=== PATIENT | female | born 1985 | race Two or more races ===

== ENCOUNTER 2018-10-07 06:17 | Emergency (ER) | payer SELFPAY ==
[~2018-10-07] VITALS: Ht 139.7 cm; Wt 71.9 kg
[2018-10-07] MEDS ORDERED: HYDROCODONE/APAP 5/325MG 1 EACH TABLET ONE (06:50)
--- NOTE | 2018-10-07 06:50 | NUR ---
PT BIBSELF COMPLAINING OF TAILBONE PAIN S/P GLF X 1 WEEK AGO. PT ABLE TO AMBULATE WITH STEADY GAIT. NO ACUTE DISTRESS NOTED AT THIS TIME
[2018-10-07] MEDS ORDERED: HYDROCODONE/APAP 5/325MG 1 EACH TABLET PO ONE (07:00)
--- NOTE | 2018-10-07 07:00 | NUR ---
RADIOLOGY AT BEDSIDE FOR XRAY
--- NOTE | 2018-10-07 07:46 | NUR ---
PT NOW COMPLAINING OF DYSURIA. AWARE
--- NOTE | 2018-10-07 07:46 | NUR ---
URINE COLLECTED AND SENT TO LAB
[2018-10-07 07:56] LABS: APPEARANCE,URINE CLEAR (CLEAR); BILIRUBIN,URINE NEGATIVE (NEGATIVE); BLOOD, URINE NEGATIVE Ery/uL (NEGATIVE); COLOR,URINE YELLOW (YELLOW); KETONES,URINE NEGATIVE (NEGATIVE); LEUKOCYTE ESTERASE ,URINE TRACE (NEGATIVE); NITRITE, URINE NEGATIVE (NEGATIVE); PH,URINE 5.5 (5.0-8.0); PROTEIN,URINE NEGATIVE (NEGATIVE); UGLUCOSE NEGATIVE (NEGATIVE); UROBILINOGEN,URINE 0.2 EU/dL (0.2)
[2018-10-07 08:03] LABS: BASOPHILS % (AUTO) 0.4 % (0.0-2.0); HEMATOCRIT 40 % (33-45); HEMOGLOBIN 13.5 g/dL (11.5-14.8); LYMPHOCYTES # (AUTO) 2.5 /CMM (0.8-4.8); LYMPHOCYTES % (AUTO) 30.1 % (20.0-44.0); MEAN CORPUSCULAR HGB CONC 34 g/dl (31.0-36.0); MEAN CORPUSCULAR VOLUME 91 fL (82-100); MONOCYTES # (AUTO) 0.5 /CMM (0.1-1.30); MONOCYTES % (AUTO) 6.3 % (2.0-12.0); NEUTROPHILS # (AUTO) 5.3 /CMM (1.8-8.9); NEUTROPHILS % (AUTO) 62.2 % (43.0-81.0); PLATELET COUNT (AUTO) 246 /CMM (150-450); RED BLOOD CELL COUNT(AUTO) 4.38 MIL/uL (4.0-5.2); WHITE BLOOD COUNT (AUTO) 8.5 K/uL (4.3-11.0)
[2018-10-07 08:06] LABS: RBC,URINE 0-2 /HPF (0-2)
[2018-10-07 08:07] LABS: BACTERIA,URINE Few /HPF (None Seen)
[2018-10-07 08:15] LABS: CALCIUM, SERUM 8.4 mg/dL (8.5-10.1); CREATININE 0.5 mg/dL (0.6-1.3); POTASSIUM 3.9 mmol/L (3.5-5.1)
[2018-10-07 08:21] LABS: ALBUMIN 3.5 g/dL (3.4-5.0); BILIRUBIN,TOTAL 0.5 mg/dL (0.2-1.0); TOTAL PROTEIN, SERUM 7.5 g/dL (6.4-8.2)
[2018-10-07 08:46] VITALS: BP 132/78
== END 2018-10-07 08:47 | disposition home or self-care (01) ==
LOC: ER 06:29
DX: S30.0XXA Contusion of lower back and pelvis, initial encounter (principal); Z98.890 Other specified postprocedural states; W01.0XXA Fall on same level from slipping, tripping and stumbling without subsequent striking against object, initial encounter; Y93.89 Activity, other specified; Y92.89 Other specified places as the place of occurrence of the external cause; Y99.8 Other external cause status
CPT/HCPCS: 36415; 72220; 80053; 81001; 84703; 85025; 99284; A4606; 81000-TC

== ENCOUNTER 2020-10-06 06:41 | Emergency (ER) | payer MEDICAID ==
[~2020-10-06] VITALS: Ht 152.4 cm; Wt 66.2 kg
--- NOTE | 2020-10-06 06:46 | NUR ---
pt bibself c/o painful and burning urination x2 days. pt aaox4 breathing evenly and unlabored.Pt states that she has pain in her waist and lower abd. Pt denies blood in urine, pain in back. evaluated pt at bedside. Pt gave urine sample and it was sent to lab. Pt attached to monitor and pox. Pt given blankets and call light within reach.
--- NOTE | 2020-10-06 06:57 | NUR ---
URINE COLLECTED AND SENT TO LAB
--- NOTE | 2020-10-06 07:14 | NUR ---
endorsed care to LILIANA Hughes for susan
[2020-10-06 07:54] LABS: COLOR,URINE YELLOW (YELLOW)
[2020-10-06 07:55] LABS: BILIRUBIN,URINE NEGATIVE (NEGATIVE); PROTEIN,URINE NEGATIVE (NEGATIVE); UGLUCOSE NEGATIVE (NEGATIVE)
[2020-10-06 07:56] LABS: LEUKOCYTE ESTERASE ,URINE SMALL (NEGATIVE); NITRITE, URINE NEGATIVE (NEGATIVE); UROBILINOGEN,URINE 0.2 EU/dL (0.2)
[2020-10-06 08:28] LABS: BACTERIA,URINE Few /HPF (None Seen); RBC,URINE 0-2 /HPF (0-2); SQUAMOUS EPITHELIAL CELL,UR Few /HPF (None Seen)
[2020-10-06 08:31] LABS: URIC ACID CRYSTALS,URINE Moderate /HPF (None Seen)
[2020-10-06] MEDS ORDERED: CEPH500T PO (08:36)
[2020-10-06 08:43] VITALS: BP 118/77
--- NOTE | 2020-10-06 08:43 | NUR ---
Patient discharged to home in stable condition. Written and verbal after care instructions given. Patient verbalizes understanding of instruction.
== END 2020-10-06 08:43 | disposition home or self-care (01) ==
LOC: ER 06:45
DX: N39.0 Urinary tract infection, site not specified (principal); Z98.890 Other specified postprocedural states
CPT/HCPCS: 81001; 84703-TC; 87086-TC

== ENCOUNTER 2022-03-05 00:06 | Emergency (ER) | payer MEDICAID ==
[~2022-03-05] VITALS: Ht 152.4 cm; Wt 68.0 kg
[~2022-03-05 00:06] MED LIST: CEPH500T PO
--- NOTE | 2022-03-05 00:35 | NUR ---
TO ER BED 10. BIBS C/O THROAT PAIN SINCE MONDAY. SWELLING NOTED AROUND THROAT. BLISTERS INSIDE MOUTH. TOOK TYLENOL WITH SOME RELIEF. DENIES ANY FEVERS. PT IS ALERT AND ORIENTED. AMBULATORY W/ STEADY GAIT. BREATHING IS EVEN AND NONLABOED. CONNECTED TO MONITOR. VSS. AWAITING MD ORDERS
[2022-03-05] MEDS ORDERED: IBUPROFEN 400 MG TABLET ONE (00:44)
--- NOTE | 2022-03-05 00:50 | NUR ---
COVID, INFLUENZA, AND STREP SWAB OBTAINED.
[2022-03-05] MEDS ORDERED: IBUPROFEN 400 MG TABLET PO ONE (01:00)
--- NOTE | 2022-03-05 01:32 | NUR ---
Patient discharged to home in stable condition. Written and verbal after care instructions given. Patient verbalizes understanding of instruction.
[2022-03-05 01:33] VITALS: BP 128/64
== END 2022-03-05 01:33 | disposition home or self-care (01) ==
LOC: ER 00:08
DX: J02.8 Acute pharyngitis due to other specified organisms (principal); B97.89 Other viral agents as the cause of diseases classified elsewhere; Z20.822 Contact with and (suspected) exposure to COVID-19; R03.0 Elevated blood-pressure reading, without diagnosis of hypertension
CPT/HCPCS: 87070; 87426; 87804; 87880; 99283; C9803; 86403-TC

== ENCOUNTER 2023-07-03 17:10 | Emergency (ER) | payer MEDICAID ==
[~2023-07-03] VITALS: Ht 152.4 cm; Wt 64.4 kg
[2023-07-03] MEDS ORDERED: ONDANSETRON HCL/PF 4 MG/2 ML VIAL ONE (17:53)
[2023-07-03] MEDS ORDERED: IV NS 0.9% 1,000 ML BAG IV ONE (18:00)
[2023-07-03] MEDS ORDERED: ONDANSETRON HCL/PF 4 MG/2 ML VIAL IVP ONE (18:00)
[2023-07-03 18:07] LABS: BASOPHILS % (AUTO) 0.2 % (0.0-2.0); EOSINOPHILS # (AUTO) 0.1 K/uL (0.0-0.7); EOSINOPHILS % (AUTO) 1.2 % (0.0-6.0); HEMATOCRIT 41 % (33-45); HEMOGLOBIN 13.6 g/dL (11.5-14.8); LYMPHOCYTES # (AUTO) 1.8 K/uL (0.8-4.8); LYMPHOCYTES % (AUTO) 26.3 % (20.0-44.0); MEAN CORPUSCULAR HEMOGLOBIN 30 PG (26.0-33.0); MEAN CORPUSCULAR HGB CONC 34 g/dl (31.0-36.0); MEAN CORPUSCULAR VOLUME 88 fL (82-100); MONOCYTES # (AUTO) 0.5 K/uL (0.1-1.30); MONOCYTES % (AUTO) 7.2 % (2.0-12.0); NEUTROPHILS # (AUTO) 4.5 K/uL (1.8-8.9); NEUTROPHILS % (AUTO) 65.1 % (43.0-81.0); PLATELET COUNT (AUTO) 229 K/uL (150-450); RED BLOOD CELL COUNT(AUTO) 4.63 MIL/uL (4.0-5.2); RED CELL DISTRIBUTION WIDTH 12.7 % (11.5-15.0); WHITE BLOOD COUNT (AUTO) 6.9 K/uL (4.3-11.0)
[2023-07-03 18:16] LABS: CALCIUM, SERUM 8.7 mg/dL (8.5-10.1); CREATININE 0.4 mg/dL (0.6-1.3); POTASSIUM 3.5 mmol/L (3.5-5.1)
[2023-07-03 18:21] LABS: ALBUMIN 3.7 g/dL (3.4-5.0); BILIRUBIN,DIRECT 0.2 mg/dL (0.0-0.2); BILIRUBIN,TOTAL 1.1 mg/dL (0.2-1.0); TOTAL PROTEIN, SERUM 7.9 g/dL (6.4-8.2)
[2023-07-03] MEDS ORDERED: MORPHINE SULFATE INJ 4 MG/ML DISP.SYRIN ONE (18:27)
[2023-07-03] MEDS ORDERED: MORPHINE SULFATE INJ 2 MG/ML DISP.SYRIN IV ONE (18:30)
[2023-07-03] MEDS ORDERED: IBUP-1953 PO (21:34)
[2023-07-03] MEDS ORDERED: TYL2T PO (21:34)
[2023-07-03] MEDS ORDERED: ONDA4TAB5 PO (21:34)
[2023-07-03 22:01] VITALS: BP 115/65; TEMP 98.4; O2SAT 100
== END 2023-07-03 22:00 | disposition home or self-care (01) ==
LOC: ER 17:15
DX: K76.9 Liver disease, unspecified (principal); R10.9 Unspecified abdominal pain
CPT/HCPCS: 99285; 74176; 96374; 96361; 96375; 85025; 80048; 83605; 83690; 80076; 36415; J2270; J2405; J7030

== ENCOUNTER 2025-02-05 16:29 | Emergency (ER) | payer MEDICAID, OTHER ==
[~2025-02-05] VITALS: Ht 152.4 cm; Wt 65.8 kg
[~2025-02-05 16:29] MED LIST changes: +IBUP-1953 PO; +ONDA4TAB5 PO; +TYL2T PO
[2025-02-05 18:22] LABS: BASOPHILS # (AUTO) 0.1 K/uL (0.0-0.2); BASOPHILS % (AUTO) 0.8 % (0.0-2.0); EOSINOPHILS # (AUTO) 0.1 K/uL (0.0-0.7); EOSINOPHILS % (AUTO) 1.6 % (0.0-6.0); HEMATOCRIT 42 % (33-45); HEMOGLOBIN 14.1 g/dL (11.5-14.8); LYMPHOCYTES # (AUTO) 1.6 K/uL (0.8-4.8); LYMPHOCYTES % (AUTO) 20.9 % (20.0-44.0); MEAN CORPUSCULAR HEMOGLOBIN 30 PG (26.0-33.0); MEAN CORPUSCULAR HGB CONC 33 g/dl (31.0-36.0); MEAN CORPUSCULAR VOLUME 88 fL (82-100); MONOCYTES # (AUTO) 0.8 K/uL (0.1-1.30); MONOCYTES % (AUTO) 10.2 % (2.0-12.0); NEUTROPHILS # (AUTO) 5.2 K/uL (1.8-8.9); NEUTROPHILS % (AUTO) 66.5 % (43.0-81.0); PLATELET COUNT (AUTO) 265 K/uL (150-450); RED BLOOD CELL COUNT(AUTO) 4.79 MIL/uL (4.0-5.2); RED CELL DISTRIBUTION WIDTH 14.1 % (11.5-15.0); WHITE BLOOD COUNT (AUTO) 7.7 K/uL (4.3-11.0)
[2025-02-05] MEDS: IV NS 0.9% 1,000 ML BAG IV ONE (18:30)
[2025-02-05] MEDS: MORPHINE SULFATE INJ 2 MG/ML DISP.SYRIN IV ONE (18:33)
[2025-02-05] MEDS: ONDANSETRON HCL/PF 4 MG/2 ML VIAL IVP ONE (18:33)
[2025-02-05 18:37] LABS: ALBUMIN 3.6 g/dL (3.4-5.0); BILIRUBIN,DIRECT 0.1 mg/dL (0.0-0.2); BILIRUBIN,TOTAL 0.7 mg/dL (0.2-1.0); CALCIUM, SERUM 8.8 mg/dL (8.5-10.1); CREATININE 0.6 mg/dL (0.6-1.3); POTASSIUM 3.5 mmol/L (3.5-5.1); TOTAL PROTEIN, SERUM 7.9 g/dL (6.4-8.2)
[2025-02-05 20:25] LABS: APPEARANCE,URINE CLEAR (CLEAR); BILIRUBIN,URINE NEGATIVE (NEGATIVE); BLOOD, URINE NEGATIVE Ery/uL (NEGATIVE); COLOR,URINE YELLOW (YELLOW); KETONES,URINE NEGATIVE (NEGATIVE); LEUKOCYTE ESTERASE ,URINE NEGATIVE (NEGATIVE); NITRITE, URINE NEGATIVE (NEGATIVE); PREGNANCY TEST URINE QUAL NEGATIVE (NEGATIVE); PROTEIN,URINE NEGATIVE (NEGATIVE); UGLUCOSE NEGATIVE (NEGATIVE); UROBILINOGEN,URINE 0.2 EU/dL (0.2)
[2025-02-05] MEDS ORDERED: ONDA4TAB5 PO (21:40)
[2025-02-05] MEDS ORDERED: LOPE2CAP40 PO (21:40)
[2025-02-05 21:56] VITALS: BP 101/40; TEMP 98.6; O2SAT 100
== END 2025-02-05 21:57 | disposition home or self-care (01) ==
LOC: ER 16:33
DX: E11.9 Type 2 diabetes mellitus without complications (principal); E78.00 Pure hypercholesterolemia, unspecified; K76.0 Fatty (change of) liver, not elsewhere classified; Z79.899 Other long term (current) drug therapy
CPT/HCPCS: 99285; 74176; 96374; 96361; 96375; 85025; 80048; 83690; 80076; 84703; 81003; 36415; J2405; J7030; J2270

== ENCOUNTER 2025-04-30 15:45 | Emergency (ER) | payer OTHER ==
[~2025-04-30] VITALS: Ht 152.4 cm; Wt 65.8 kg
[~2025-04-30 15:45] MED LIST changes: +LOPE2CAP40 PO
[2025-04-30 16:15] VITALS: TEMP 98.3
[2025-04-30] MEDS ORDERED: ONDANSETRON HCL/PF 4 MG/2 ML VIAL ONE (16:34)
[2025-04-30] MEDS ORDERED: FAMOTIDINE/PF INJ 20 MG/2 ML VIAL IV ONE (16:37)
[2025-04-30 16:45] LABS: PLATELET COUNT (AUTO) 307 K/uL (150-450); RED BLOOD CELL COUNT(AUTO) 5.16 MIL/uL (4.0-5.2); RED CELL DISTRIBUTION WIDTH 13.4 % (11.5-15.0); WHITE BLOOD COUNT (AUTO) 14.6 K/uL (4.3-11.0)
[2025-04-30] MEDS: IV NS 0.9% 1,000 ML BAG IV ONE (16:45)
[2025-04-30] MEDS: ONDANSETRON HCL/PF 4 MG/2 ML VIAL IVP ONE (16:45)
[2025-04-30] MEDS: FAMOTIDINE/PF INJ 20 MG/2 ML VIAL IV ONE (16:45)
[2025-04-30 16:58] LABS: APPEARANCE,URINE SLIGHTLY CLOUDY (CLEAR); BLOOD, URINE NEGATIVE Ery/uL (NEGATIVE); LEUKOCYTE ESTERASE ,URINE NEGATIVE (NEGATIVE); NITRITE, URINE NEGATIVE (NEGATIVE); UGLUCOSE NEGATIVE (NEGATIVE)
[2025-04-30 16:59] LABS: PREGNANCY TEST URINE QUAL NEGATIVE (NEGATIVE)
[2025-04-30 17:02] LABS: CALCIUM, SERUM 10.1 mg/dL (8.5-10.1); CREATININE 0.8 mg/dL (0.6-1.3); SODIUM SERUM 142.0 mmol/L (136-145); UREA NITROGEN, BLOOD 18.0 mg/dL (7-18)
[2025-04-30 17:11] LABS: ASPARTATE AMINOTRANSFERASE 19.0 U/L (15-37); TOTAL PROTEIN, SERUM 8.8 g/dL (6.4-8.2)
[2025-04-30 17:26] LABS: ADD URINE CULTURE NO; SQUAMOUS EPITHELIAL CELL,UR 0-2 /HPF (None Seen)
[2025-04-30] MEDS: KETOROLAC TROMETHAMINE INJ 30 MG/ML VIAL IM ONE (17:35)
[2025-04-30] MEDS ORDERED: KETOROLAC TROMETHAMINE INJ 30 MG/ML VIAL ONE (17:36)
[2025-04-30] MEDS ORDERED: METO-295 PO (17:49)
[2025-04-30] MEDS ORDERED: DICY10CA37 PO (17:49)
[2025-04-30] MEDS ORDERED: NITR100C6 PO (17:49)
[2025-04-30] MEDS ORDERED: IBUP-1490 PO (17:49)
[2025-04-30] MEDS ORDERED: CEFP200T14 PO (18:00)
[2025-04-30] MEDS ORDERED: METOCLOPRAMIDE HCL 10 MG/2 ML VIAL ONE (18:08)
[2025-04-30] MEDS: METOCLOPRAMIDE HCL 10 MG/2 ML VIAL IV ONE (18:14)
[2025-04-30 18:44] VITALS: BP 125/78; O2SAT 95
== END 2025-04-30 18:47 | disposition home or self-care (01) ==
LOC: ER 15:49
DX: N39.0 Urinary tract infection, site not specified (principal); R10.9 Unspecified abdominal pain; E11.9 Type 2 diabetes mellitus without complications; E78.00 Pure hypercholesterolemia, unspecified; K76.0 Fatty (change of) liver, not elsewhere classified; R11.2 Nausea with vomiting, unspecified; Z79.899 Other long term (current) drug therapy
CPT/HCPCS: 99284; 96374; 96375; 96361; 85025; 80048; 83690; 80076; 84703; 81001; 36415; J1885; J1308; J2765; J2405; J7030; 87086-TC